=== PATIENT | male | born 1960 | race Caucasian/White ===

== ENCOUNTER 2021-07-23 16:30 | Outpatient (RCR) | payer OTHER, BC, SELFPAY ==
[2021-04-21 15:52] VITALS: PULSE 81
== END 2021-07-23 19:30 | disposition home or self-care (01) ==
LOC: ANHCPREHAB 16:30
PROVIDERS: PCP Internal Medicine; Visit Provider Hospitalist
DX: Z95.5 Presence of coronary angioplasty implant and graft (principal)
CPT/HCPCS: 93798